=== PATIENT | female | born 1985 | race Hispanic/Latino ===

== ENCOUNTER 2022-12-29 00:24 | Emergency (ER) | payer OTHER ==
[~2022-12-29] VITALS: Ht 170.2 cm; Wt 154.2 kg
[~2022-12-29 00:24] MED LIST: ALBU90AE2 IH; AZIT250T9 PO; BENZ-39 PO; D-ME118S47 PO; NIRM1TAB PO
[2022-12-29] MEDS ORDERED: PREN1COM14 PO (01:11)
[2022-12-29] MEDS ORDERED: ALBUHFA IH (01:11)
[2022-12-29 01:22] VITALS: BP 132/82
== END 2022-12-29 01:22 | disposition home or self-care (01) ==
LOC: EDH 00:24
DX: O92.29 Other disorders of breast associated with pregnancy and the puerperium (principal); O99.511 Diseases of the respiratory system complicating pregnancy, first trimester; J45.909 Unspecified asthma, uncomplicated; Z3A.01 Less than 8 weeks gestation of pregnancy

== ENCOUNTER 2023-01-25 17:58 | Emergency (ER) | payer MEDICAID ==
[~2023-01-25] VITALS: Ht 170.2 cm; Wt 136.1 kg
[~2023-01-25 17:58] MED LIST changes: +ALBUHFA IH; +PREN1COM14 PO
[2023-01-25 21:36] LABS: BASOPHILS % (AUTO) 0.2 % (0.0-5.0); EOSINOPHILS % (AUTO) 2.7 % (0.0-8.0); HEMATOCRIT 38.9 % (36-48); LYMPHOCYTES % (AUTO) 18.9 % (21.0-51.0); MEAN CORPUSCULAR HEMOGLOBIN 28.9 pg (27.0-33.0); MEAN CORPUSCULAR HGB CONC 33.4 g/dL (32.0-36.0); MEAN CORPUSCULAR VOLUME 86.4 fL (79-99); MONOCYTES % (AUTO) 8.1 % (3.0-13.0); NEUTROPHILS % (AUTO) 69.9 % (40.0-77.0); PLATELET COUNT (AUTO) 178 K/uL (130-400); RED CELL DISTRIBUTION WIDTH 13.4 % (11.0-15.5); WHITE BLOOD COUNT (AUTO) 9.1 K/uL (4.8-10.8)
[2023-01-25 21:38] LABS: APPEARANCE,URINE CLOUDY (CLEAR); BILIRUBIN,URINE NEGATIVE (NEGATIVE); COLOR,URINE LIGHT-YELLOW (YELLOW); GLUCOSE, URINE (UA) NEGATIVE (NEGATIVE); KETONES,URINE NEGATIVE (NEGATIVE); LEUKOCYTE ESTERASE ,URINE 500 Leu/uL (NEGATIVE); NITRATE,URINE NEGATIVE (NEGATIVE); OCCULT BLOOD,URINE NEGATIVE (NEGATIVE); PROTEIN,URINE NEGATIVE (NEGATIVE); UROBILINOGEN,URINE 0.2 mg/dL (0.2-1.0)
[2023-01-25 21:40] LABS: CREATININE 0.7 mg/dL (0.5-1.5); POTASSIUM 3.9 mmol/L (3.5-5.1)
[2023-01-25 21:44] LABS: BACTERIA,URINE RARE /HPF (None Seen); MUCUS,URINE RARE LPF (None Seen); SQUAMOUS EPITHELIAL CELL,UR FEW /HPF (0-2); YEAST,URINE BUDDING RARE /HPF (None Seen)
[2023-01-25 21:45] LABS: ALBUMIN 3.3 g/dL (3.5-5.0); TOTAL PROTEIN, SERUM 7.5 g/dL (6.0-8.3)
[2023-01-25] MEDS ORDERED: MACR100 PO (22:04)
[2023-01-25 22:27] VITALS: BP 148/78
== END 2023-01-25 22:35 | disposition home or self-care (01) ==
LOC: EDH 17:58
DX: N39.0 Urinary tract infection, site not specified (principal); J45.909 Unspecified asthma, uncomplicated; Z79.899 Other long term (current) drug therapy
CPT/HCPCS: 99283; 87635; 80053; 85025; 87088; 87804 ×2; 81001; 81025; 36415; C9803

== ENCOUNTER 2023-02-15 17:51 | Emergency (ER) | payer MEDICAID, OTHER ==
[~2023-02-15] VITALS: Ht 170.2 cm; Wt 152.0 kg
[~2023-02-15 17:51] MED LIST changes: +MACR100 PO
[2023-02-15 17:52] VITALS: BP 124/82
[2023-02-15] MEDS ORDERED: ACETAMINOPHEN 500 MG TABLET PO ONE (20:00)
[2023-02-15] MEDS ORDERED: ACET-66 PO (21:20)
== END 2023-02-15 21:37 | disposition home or self-care (01) ==
LOC: EDH 17:51
DX: O26.891 Other specified pregnancy related conditions, first trimester (principal); M25.552 Pain in left hip; J45.909 Unspecified asthma, uncomplicated; Z79.899 Other long term (current) drug therapy; Z3A.01 Less than 8 weeks gestation of pregnancy
CPT/HCPCS: 76801

== ENCOUNTER 2023-05-11 21:02 | Observation (INO) | payer MEDICAID ==
[~2023-05-11] VITALS: Ht 167.6 cm; Wt 146.5 kg
[~2023-05-11 21:02] MED LIST changes: +ACET-66 PO
[2023-05-11 21:03] VITALS: BP 134/76; PULSE 102; RESP 20
[2023-05-11 21:35] LABS: APPEARANCE,URINE CLOUDY (CLEAR); BILIRUBIN,URINE NEGATIVE (NEGATIVE); COLOR,URINE LIGHT-YELLOW (YELLOW); GLUCOSE, URINE (UA) NEGATIVE (NEGATIVE); KETONES,URINE 60 mg/dL (NEGATIVE); LEUKOCYTE ESTERASE ,URINE 25 Leu/uL (NEGATIVE); NITRATE,URINE NEGATIVE (NEGATIVE); OCCULT BLOOD,URINE NEGATIVE (NEGATIVE); PROTEIN,URINE NEGATIVE (NEGATIVE); UROBILINOGEN,URINE 0.2 mg/dL (0.2-1.0)
[2023-05-11 21:37] LABS: ADD UA MICROSCOPIC YES
[2023-05-11 21:41] LABS: AMPHET/METH SCREEN,URINE NEGATIVE (NEGATIVE); BACTERIA,URINE FEW /HPF (None Seen); BARBITURATE SCREEN, URINE NEGATIVE (NEGATIVE); BENZODIAZEPINES SCREEN,URINE NEGATIVE (NEGATIVE); CANNABINOID SCREEN,URINE NEGATIVE (NEGATIVE); COCAINE SCREEN,URINE NEGATIVE (NEGATIVE); MUCUS,URINE RARE LPF (None Seen); OPIATE SCREEN,URINE NEGATIVE (NEGATIVE); OTHER CASTS, URINE 1 /LPF (None Seen); PHENCYCLIDINE SCREEN,URINE NEGATIVE (NEGATIVE); SQUAMOUS EPITHELIAL CELL,UR MOD /HPF (0-2)
== END 2023-05-11 22:25 | disposition home or self-care (01) ==
LOC: EDH 21:02 → LDH 21:03
PROVIDERS: ADMIT Obstetrics & Gynecology; ATTEND Obstetrics & Gynecology
DX: O99.342 Other mental disorders complicating pregnancy, second trimester (principal); F41.9 Anxiety disorder, unspecified; O26.892 Other specified pregnancy related conditions, second trimester; R06.02 Shortness of breath; Z3A.24 24 weeks gestation of pregnancy; Z79.899 Other long term (current) drug therapy
CPT/HCPCS: 59025; 80305; 81001; G0378; G0379

== ENCOUNTER 2023-08-16 03:08 | Observation (INO) | payer MEDICAID ==
[~2023-08-16] VITALS: Ht 167.6 cm; Wt 146.1 kg
[~2023-08-16 03:08] MED LIST changes: +BROM118S48 PO; -D-ME118S47 PO
[2023-08-16 03:44] LABS: APPEARANCE,URINE CLOUDY (CLEAR); BILIRUBIN,URINE NEGATIVE (NEGATIVE); COLOR,URINE YELLOW (YELLOW); GLUCOSE, URINE (UA) NEGATIVE (NEGATIVE); KETONES,URINE 40 mg/dL (NEGATIVE); LEUKOCYTE ESTERASE ,URINE 500 Leu/uL (NEGATIVE); NITRATE,URINE NEGATIVE (NEGATIVE); OCCULT BLOOD,URINE NEGATIVE (NEGATIVE); PROTEIN,URINE 30 mg/dL (NEGATIVE); UROBILINOGEN,URINE 0.2 mg/dL (0.2-1.0)
[2023-08-16 03:47] LABS: ADD UA MICROSCOPIC YES
[2023-08-16 03:52] LABS: BACTERIA,URINE RARE /HPF (None Seen); MUCUS,URINE FEW LPF (None Seen); SQUAMOUS EPITHELIAL CELL,UR MANY /HPF (0-2)
== END 2023-08-16 05:10 | disposition home or self-care (01) ==
LOC: EDH 03:08 → LDH 03:09
PROVIDERS: ADMIT Obstetrics & Gynecology; ATTEND Obstetrics & Gynecology
DX: O60.03 Preterm labor without delivery, third trimester (principal); Z3A.37 37 weeks gestation of pregnancy
CPT/HCPCS: 87088; 81001; G0378 ×2; G0379

== ENCOUNTER 2023-08-20 17:45 | Observation (INO) | payer MEDICAID ==
[~2023-08-20] VITALS: Ht 170.2 cm; Wt 144.2 kg
[2023-08-20 17:49] VITALS: BP 130/71; PULSE 104; RESP 18; O2SAT 98
[2023-08-20] MEDS ORDERED: AMPICILLIN 2GM+NS 100ML 100 ML IV SCH (19:00)
[2023-08-20] MEDS ORDERED: OXYTOCIN-LR 30 UNITS/500ML 500 ML IV SCH (19:00)
[2023-08-20 19:45] LABS: HEMATOCRIT 32.2 % (36-48); MEAN CORPUSCULAR HEMOGLOBIN 26.2 pg (27.0-33.0); MEAN CORPUSCULAR HGB CONC 31.7 g/dL (32.0-36.0); MEAN CORPUSCULAR VOLUME 82.8 fL (79-99); RED BLOOD CELL COUNT(AUTO) 3.89 MIL/uL (4.00-5.50); RED CELL DISTRIBUTION WIDTH 15.7 % (11.0-15.5)
[2023-08-20] MEDS: LACTATED RINGERS 1000ML 1,000 ML IV PRN (20:17)
[2023-08-20 20:22] LABS: HIV 1&2 ANTIBODY Non-Reactive (Negative); HIV-1 p24 Antigen Non-Reactive (Negative)
[2023-08-20] MEDS: AMPICILLIN 1GM+NS 50ML 50 ML IV SCH (23:41)
[2023-08-21 00:24] LABS: APPEARANCE,URINE CLOUDY (CLEAR); BILIRUBIN,URINE NEGATIVE (NEGATIVE); COLOR,URINE YELLOW (YELLOW); GLUCOSE, URINE (UA) NEGATIVE (NEGATIVE); KETONES,URINE NEGATIVE (NEGATIVE); LEUKOCYTE ESTERASE ,URINE 500 Leu/uL (NEGATIVE); NITRATE,URINE NEGATIVE (NEGATIVE); OCCULT BLOOD,URINE NEGATIVE (NEGATIVE); PH,URINE 6.5 (5.0-8.0); PROTEIN,URINE 10 mg/dL (NEGATIVE); UROBILINOGEN,URINE 0.2 mg/dL (0.2-1.0)
[2023-08-21 00:28] LABS: ADD UA MICROSCOPIC YES
[2023-08-21 00:31] LABS: BACTERIA,URINE RARE /HPF (None Seen); MUCUS,URINE RARE LPF (None Seen); RBC,URINE 0-1 /HPF (0-1); SQUAMOUS EPITHELIAL CELL,UR MANY /HPF (0-2)
[2023-08-21] MEDS: LACTATED RINGERS 1000ML 1,000 ML IV PRN ×2 (01:29→07:06)
[2023-08-21] MEDS: AMPICILLIN 1GM+NS 50ML 50 ML IV SCH (03:40)
[2023-08-21] MEDS ORDERED: LORATADINE 10 MG TABLET PO SCH (06:00)
[2023-08-22 11:00] LABS: RAPID PLASMA REAGIN NONREACTIVE (NONREACTIVE)
== END 2023-08-21 08:00 | disposition home or self-care (01) ==
LOC: EDH 17:45 → LDH 17:46
PROVIDERS: ADMIT Obstetrics & Gynecology; ATTEND Obstetrics & Gynecology
DX: O26.893 Other specified pregnancy related conditions, third trimester (principal); R10.9 Unspecified abdominal pain; Z3A.38 38 weeks gestation of pregnancy
CPT/HCPCS: 96365; 96366 ×2; 99284; 85027; 86592; 86850; 86900; 86901; 86156; 87088; 87340; 86870; 86701; 87390; 81001; 36415; 96361; G0378 ×13; J0290 ×2

== ENCOUNTER 2023-08-22 18:52 | Observation (INO) | payer MEDICAID ==
[~2023-08-22] VITALS: Ht 170.2 cm; Wt 145.1 kg
[2023-08-22 19:00] VITALS: BP 116/76; PULSE 83; RESP 16; O2SAT 96
[2023-08-22 19:26] LABS: APPEARANCE,URINE CLOUDY (CLEAR); BILIRUBIN,URINE NEGATIVE (NEGATIVE); COLOR,URINE YELLOW (YELLOW); GLUCOSE, URINE (UA) NEGATIVE (NEGATIVE); KETONES,URINE NEGATIVE (NEGATIVE); LEUKOCYTE ESTERASE ,URINE 250 Leu/uL (NEGATIVE); NITRATE,URINE NEGATIVE (NEGATIVE); OCCULT BLOOD,URINE MODERATE (NEGATIVE); PROTEIN,URINE 50 mg/dL (NEGATIVE)
[2023-08-22 19:27] LABS: ADD UA MICROSCOPIC YES
[2023-08-22 19:30] LABS: BACTERIA,URINE RARE /HPF (None Seen); MUCUS,URINE MOD LPF (None Seen); RBC,URINE 26-50 /HPF (0-1); SQUAMOUS EPITHELIAL CELL,UR MOD /HPF (0-2)
[2023-08-22] MEDS ORDERED: LACTATED RINGERS 1000ML IV ONE (20:00)
== END 2023-08-22 21:25 | disposition home or self-care (01) ==
LOC: EDH 18:52 → LDH 18:53 → INTOOBSV 18:53
PROVIDERS: ADMIT Obstetrics & Gynecology; ATTEND Obstetrics & Gynecology
DX: O36.8130 Decreased fetal movements, third trimester, not applicable or unspecified (principal); O26.893 Other specified pregnancy related conditions, third trimester; R10.2 Pelvic and perineal pain; Z3A.38 38 weeks gestation of pregnancy
CPT/HCPCS: 59025; 96360; 81001; 76819; G0378 ×2; G0379

== ENCOUNTER 2023-09-11 23:08 | Emergency (ER) | payer MEDICAID ==
[~2023-09-11] VITALS: Ht 167.6 cm; Wt 134.3 kg
[2023-09-11 23:16] VITALS: BP 143/89; PULSE 69; RESP 20; O2SAT 100
[2023-09-12] MEDS ORDERED: IBUP-1493 PO (04:17)
== END 2023-09-12 04:30 | disposition home or self-care (01) ==
LOC: EDH 23:08
DX: T81.41XA Infection following a procedure, superficial incisional surgical site, initial encounter (principal); J45.909 Unspecified asthma, uncomplicated
CPT/HCPCS: 99282

== ENCOUNTER 2023-11-07 07:09 | Day surgery (SDC) | payer MEDICAID ==
[2023-11-06 13:13] LABS: BASOPHILS # (AUTO) 0.02 K/uL (0.00-0.20); BASOPHILS % (AUTO) 0.3 % (0.0-5.0); EOSINOPHILS # (AUTO) 0.25 K/uL (0.00-0.70); EOSINOPHILS % (AUTO) 3.8 % (0.0-8.0); HEMATOCRIT 36.9 % (36-48); IMMATURE GRANULOCYTE ABSOLUTE 0.02 K/uL (0-1); LYMPHOCYTES # (AUTO) 2.4 K/uL (1.0-4.8); LYMPHOCYTES % (AUTO) 36.7 % (21.0-51.0); MEAN CORPUSCULAR HEMOGLOBIN 26.3 pg (27.0-33.0); MEAN CORPUSCULAR HGB CONC 31.7 g/dL (32.0-36.0); MEAN CORPUSCULAR VOLUME 82.9 fL (79-99); MONOCYTES # (AUTO) 0.7 K/uL (0.1-1.0); MONOCYTES % (AUTO) 10.4 % (3.0-13.0); NEUTROPHILS # (AUTO) 3.2 K/uL (1.8-7.7); NEUTROPHILS % (AUTO) 48.5 % (40.0-77.0); PLATELET COUNT (AUTO) 228 K/uL (130-400); RED BLOOD CELL COUNT(AUTO) 4.45 MIL/uL (4.00-5.50); WHITE BLOOD COUNT (AUTO) 6.6 K/uL (4.8-10.8)
[2023-11-06 13:44] VITALS: BP 124/58; PULSE 72; RESP 20
[2023-11-07] VITALS (13 sets, daily range): BP systolic 106–138; BP diastolic 56–94; PULSE 82–96; RESP 14–18
[~2023-11-07] VITALS: Ht 167.6 cm; Wt 142.0 kg
[~2023-11-07 07:09] MED LIST changes: -ACET-66 PO; +ALBU10.7 IH; -ALBU90AE2 IH; -ALBUHFA IH; -AZIT250T9 PO; -BENZ-39 PO; -BROM118S48 PO; +CETI10TA57 PO; +LACTATED RINGERS 1000ML 1,000 ML IV ONE; -MACR100 PO; -NIRM1TAB PO; -PREN1COM14 PO
[2023-11-07] MEDS ORDERED: MIDAZOLAM HCL 1 MG/ML 2ML VIAL ONE (07:39)
[2023-11-07] MEDS ORDERED: ALBUTEROL INHALER 90MCG/INH IH ONE (07:39)
[2023-11-07] MEDS ORDERED: LIDOCAINE PF 100MG/5ML (2%) SYRINGE 5ML ONE (07:44)
[2023-11-07] MEDS ORDERED: SUCCINYLCHOLINE CHLORIDE 20 MG/ML 10 ML VIAL ONE (07:44)
[2023-11-07] MEDS ORDERED: ROCURONIUM BROMIDE 10MG/1ML 5ML VL ONE ×2 (07:45→08:37)
[2023-11-07] MEDS ORDERED: FENTANYL CITRATE PF 50 MCG/1 ML 2ML VIAL ONE (07:45)
[2023-11-07] MEDS ORDERED: PROPOFOL 10 MG/ML 20ML VIAL IV ONE (07:45)
[2023-11-07] MEDS: CEFAZOLIN SODIUM 2 GM VIAL ONE ×2 (07:50→08:11)
[2023-11-07] MEDS ORDERED: DEXAMETHASONE SOD PHOSPHATE 4 MG/ML 1ML VIAL ONE (08:02)
[2023-11-07] MEDS ORDERED: ONDANSETRON 4MG INJ ONE (08:03)
[2023-11-07] MEDS ORDERED: MEPERIDINE-PF 25 MG/ML SYG ONE ×2 (08:56→09:19)
[2023-11-07] MEDS ORDERED: GLYCOPYRROLATE 0.2 MG/ML 5 ML VIAL ONE (08:57)
== END 2023-11-07 12:10 | disposition home or self-care (01) ==
LOC: DAH 07:09
PROVIDERS: ATTEND Obstetrics & Gynecology
DX: Z30.2 Encounter for sterilization (principal); E66.01 Morbid (severe) obesity due to excess calories; J45.909 Unspecified asthma, uncomplicated; Z79.899 Other long term (current) drug therapy; Z79.01 Long term (current) use of anticoagulants; Z68.43 Body mass index [BMI] 50.0-59.9, adult
CPT/HCPCS: 86870; 84703; 85025; 86850; 86900; 86901; 86156; 36415; 49320; J1100; A4663; A4351; A4215 ×3; J7120; J3010; J0330; J3490 ×5; J2250; J2405; J2175 ×2; J0690; A4649; C1769 ×2; A4223; A4222; A4221; A4600; J2001; J2704; G0168